=== PATIENT | female | born 1980 ===

== ENCOUNTER 2020-01-16 14:49 | Inpatient (IN) | payer BC, MEDICAID ==
[2020-01-16 20:20] VITALS: BP 134/94
[2020-01-16] MEDS ORDERED: HALOPERIDOL LACTATE 5 MG/ML VIAL ONE (20:24)
[2020-01-16] MEDS ORDERED: DiphenhydrAMINE HCL 50 MG/ML VIAL ONE (20:24)
[2020-01-16] MEDS ORDERED: LORazepam 2 MG/ML VIAL ONE (20:24)
[2020-01-16] MEDS ORDERED: HALOPERIDOL 5 MG TABLET PO PRN (20:30)
[2020-01-16] MEDS ORDERED: LORazepam 2 MG/ML VIAL IM ONE (20:30)
[2020-01-16] MEDS ORDERED: LORazepam 2 MG TABLET PO PRN (20:30)
[2020-01-16] MEDS ORDERED: HALOPERIDOL LACTATE 5 MG/ML VIAL IM ONE (20:30)
[2020-01-16] MEDS ORDERED: DiphenhydrAMINE HCL 50 MG/ML VIAL IM ONE (20:30)
[2020-01-17 08:36] LABS: BASOPHILS % (AUTO) 0.5 % (0.0-2.0); EOSINOPHILS % (AUTO) 2.8 % (1.0-6.0); HEMATOCRIT 43.3 % (36-46); HEMOGLOBIN 14.7 g/dL (12.0-16.0); LYMPHOCYTES # (AUTO) 3.1 K/uL (1.0-4.8); MEAN CORPUSCULAR HEMOGLOBIN 32.8 pg (26.0-34.0); MEAN CORPUSCULAR HGB CONC 33.9 G/dL (31.0-37.0); MEAN CORPUSCULAR VOLUME 97 fL (80-100); MONOCYTES # (AUTO) 0.6 K/uL (0.1-1.0); MONOCYTES % (AUTO) 7.7 % (2.0-9.0); NEUTROPHILS # (AUTO) 4.1 K/uL (1.8-7.7); PLATELET COUNT (AUTO) 319 K/uL (150-450); RED BLOOD CELL COUNT(AUTO) 4.47 MIL/uL (4.00-5.20); RED CELL DISTRIBUTION WIDTH 13.3 % (11.5-14.5)
[2020-01-17 08:57] LABS: HEMOGLOBIN A1C 5.2 % (3.8-5.6)
[2020-01-17 09:12] LABS: ALANINE AMINOTRANSFERASE 38 U/L (12-78); ALBUMIN 4.1 g/dL (3.4-5.0); ALKALINE PHOSPHATASE 81 U/L (46-116); ANION GAP 11 mmol/L (8-16); ASPARTATE AMINOTRANSFERASE 25 U/L (15-37); BILIRUBIN,TOTAL 0.7 mg/dL (0.1-1.0); CALCIUM, TOTAL 9.5 mg/dL (8.8-10.5); CARBON DIOXIDE 29 mmol/L (22-29); CHLORIDE 101 mmol/L (98-107); CHOL/HDL RATIO 4.3 (3.9-5.7); CHOLESTEROL 259 mg/dL (131-200); CREATININE 1.05 mg/dL (0.60-1.30); GLOMERULAR FILTR. RATE CALC 58 mL/min (>60); GLUCOSE,RANDOM 98 mg/dL (70-110); HCG,QUANTITATIVE < 1 mIU/mL (0-6); HDL CHOLESTEROL 60 mg/dL (40-60); LDL CHOL (CALC.) 172 mg/dL (0-130); POTASSIUM 3.8 mmol/L (3.5-5.1); SODIUM SERUM 141 mmol/L (136-145); THYROID STIMULATING HORMONE 0.11 uIU/mL (0.36-3.74); TOTAL PROTEIN, SERUM 7.7 g/dL (6.4-8.2); TRIGLYCERIDES 133 mg/dL (15-150); UREA NITROGEN, BLOOD 11 mg/dL (7-18)
[2020-01-17] MEDS ORDERED: ALBUTEROL SULFATE HFA 90 MCG/PUFF 8 GM INHALER IH PRN (10:00)
[2020-01-17] MEDS ORDERED: PETROLATUM,WHITE 28 GM JELLY TP PRN (10:00)
[2020-01-17] MEDS ORDERED: IBUPROFEN 400 MG TABLET PO PRN (10:00)
[2020-01-17] MEDS ORDERED: GuaiFENesin/D-METHORPHAN [SUGAR-FREE] 200-20MG/10 ML SYRUP UDCUP PO PRN (10:00)
[2020-01-17] MEDS ORDERED: MAGNESIUM HYDROXIDE SUSPENSION 30 ML UDCUP PO PRN (10:00)
[2020-01-17] MEDS ORDERED: ONDANSETRON HCL 4 MG TABLET PO PRN (10:00)
[2020-01-17] MEDS ORDERED: ACETAMINOPHEN 325 MG TABLET PO PRN (10:00)
[2020-01-17] MEDS ORDERED: NICOTINE 14 MG/24 HOUR PATCH TD PRN (10:00)
[2020-01-17] MEDS ORDERED: LOPERAMIDE HCL 2 MG CAPSULE PO PRN (10:00)
[2020-01-17] MEDS ORDERED: CloNIDine HCL 0.1 MG TABLET PO PRN (10:00)
[2020-01-17] MEDS ORDERED: MAG HYDROX/AL HYDROX/SIMETH ES 30 ML SUSPENSION UDCUP PO PRN (10:00)
[2020-01-17] MEDS ORDERED: DOCUSATE SODIUM 100 MG CAPSULE PO PRN (10:00)
[2020-01-17] MEDS: OLANZapine 5 MG TABLET PO SCH ×2 (11:00→20:37)
[2020-01-17 16:36] VITALS: BP 110/78
[2020-01-18 01:33] VITALS: BP 117/74
[2020-01-18 08:27] VITALS: BP 125/72
[2020-01-18] MEDS: OLANZapine 5 MG TABLET PO SCH ×2 (08:45→20:35)
[2020-01-18 16:16] VITALS: BP 121/82
[2020-01-19] MEDS: ZOLPIDEM TARTRATE 10 MG TABLET PO PRN ×2 (00:32→20:52)
[2020-01-19 04:14] VITALS: BP 120/74
[2020-01-19] MEDS: OLANZapine 5 MG TABLET PO SCH ×2 (08:12→20:52)
[2020-01-19 08:56] VITALS: BP 131/83
[2020-01-19 16:21] VITALS: BP 123/86
[2020-01-20 00:26] VITALS: BP 133/85
[2020-01-20 08:20] VITALS: BP 133/97
[2020-01-20] MEDS: OLANZapine 5 MG TABLET PO SCH (08:31)
[2020-01-20] MEDS ORDERED: OLAN5TAB2 PO (12:38)
== END 2020-01-20 20:38 | disposition home or self-care (01) | DRG 885 ==
LOC: B3A 20:15
PROVIDERS: ADMIT Psychiatry & Neurology Child & Adolescent Psychiatry; ATTEND Psychiatry & Neurology Child & Adolescent Psychiatry
DX: F20.0 Paranoid schizophrenia (principal); F10.10 Alcohol abuse, uncomplicated; E78.5 Hyperlipidemia, unspecified; E66.9 Obesity, unspecified
CPT/HCPCS: 83036; 84443; 87081; J1200; J1630; J2060; J3535